=== PATIENT | female | born 1985 | race Caucasian/White ===

== ENCOUNTER 2016-08-15 19:26 | Outpatient (CLI) | payer OTHER ==
[~2016-08-15] VITALS: Ht 160 cm; Wt 100.4 kg
[~2016-08-15 19:26] MED LIST: PREN1TAB49
[2016-08-15 19:31] VITALS: Ht 160 cm; Wt 100.4 kg
[2016-08-15 19:44] VITALS: BP 126/69; PULSE 94; RESP 18
[2016-08-15 20:32] LABS: ADD UMIC NO; URINE BILIRUBIN (Dip) NEGATIVE (NEGATIVE); URINE BLOOD (Dip) NEGATIVE (NEGATIVE); URINE COLOR LT. YELLOW (YELLOW); URINE GLUCOSE (Dip) NEGATIVE (NEGATIVE); URINE KETONES (Dip) NEGATIVE (NEGATIVE); URINE LEUKOCYTE ESTERASE (Dip) NEGATIVE (NEGATIVE); URINE NITRITE (Dip) NEGATIVE (NEGATIVE); URINE TOTAL PROTEIN (Dip) NEGATIVE (NEGATIVE); URINE UROBILINOGEN (Dip) 0.2 E.U./dL (0.1-1.0)
[2016-08-15 20:43] LABS: BASOPHILS % 0.1 % (0.0-2.0); EOSINOPHILS # 0.1 10^3/ul (0.0-0.5); EOSINOPHILS % 0.8 % (0.0-7.0); HEMATOCRIT 37.4 % (37.0-47.0); HEMOGLOBIN 12.4 g/dl (12.0-16.0); LYMPHOCYTES # 2.1 10^3/ul (0.8-2.9); LYMPHOCYTES % 26.2 % (15.0-51.0); MEAN CORPUSCULAR HEMOGLOBIN 28.8 pg (29.0-33.0); MEAN CORPUSCULAR HGB CONC 33.2 g/dl (32.0-37.0); MEAN CORPUSCULAR VOLUME 86.7 fl (82.0-101.0); MEAN PLATELET VOLUME 8.4 fl (7.4-10.4); MONOCYTE # 0.8 10^3/ul (0.3-0.9); MONOCYTES % 10.2 % (0.0-11.0); NEUTROPHIL # 5.1 10^3/ul (1.6-7.5); NEUTROPHILS % 62.7 % (39.0-77.0); PLATELET COUNT 233 10^3/UL (140-440); RED BLOOD COUNT 4.31 10^6/ul (4.20-5.40); RED CELL DISTRIBUTION WIDTH 15.3 % (11.5-14.5); UNCORRECTED WBC 8.2 10^3/ul (4.8-10.8); WHITE BLOOD COUNT 8.2 10^3/ul (4.8-10.8)
--- NOTE | 2016-08-15 20:45 | RADRPT ---
PROCEDURE: Ultrasound CLINICAL INDICATION: Contractions. TECHNIQUE: Ultrasound examination of for evaluation of biophysical profile. COMPARISON: None. FINDINGS: breathing appropriate for a score of 2; movement is appropriate for score of 2; to ne is appropriate for score of 2; and amniotic fluid is appropriate for score of 2. Biophysical pro file of 03/01. MUMTAZ is 8.9 cm. Placenta is anterior grade II. Cardiac motion is detected at a rate of 161 beats per minute. Jesu epperson today's detail examination of previous cardiac rate was 159 beats per minute. Please see companio n report. There is cephalic presentation. IMPRESSION: Biophysical profile of 03/01. Physician Libertad Date Time Electronically viewed and signed by Physician Libertad on 08/15/2016 20:45 RS/
[2016-08-15 20:46] LABS: CONDITION 1; LH ANALYZER COMMENTS 1
--- NOTE | 2016-08-15 20:48 | RADRPT ---
PROCEDURE: US OB. CLINICAL INDICATION: labor. Contractions. TECHNIQUE: Multiple sonographic images of the pelvis were obtained. The images were reviewed on a PACS workstation. COMPARISON: No prior studies are available for comparison. FINDINGS: There is a single viable intrauterine gestation. Cardiac activity is present with 159 beats per min krystin. On today's evaluation of biophysical profile heart rate was 161 beats per minute. There is a cephalic presentation. Measurements were made in order to determine age. The results are as follows: BPD =9.29 cm HC =32.87 cm AC =37.94 cm FL =7.46 cm. Estimated gestational age of approximately 38 weeks and 6 days.. The estimated date of delivery is 08/23/2016. The EFW = 3973 g . The heart, intracranial contents, spine, stomach, kidneys, bladder and cord insertion are visualized and without abnormality. The placenta is anterior, grade II.. There is no evidence for an abruption or placenta previa. There is a normal amount of amniotic fluid with an MUMTAZ = 8.9 cm.. There are no adnexal masses.. IMPRESSION: Single viable intrauterine gestation of approximately 38 weeks and 6 days.. The estimated date of d elivery is 08/23/2016. Physician Libertad Date Time Electronically viewed and signed by Physician Libertad on 08/15/2016 20:48 RS/
--- NOTE | 2016-08-15 21:55 | QN ---
Documentation Comment Laborist Dr Jessica's pt 30 y.o. A2 Ect2 with an IUP at 37 weeks c/o "her bag of water broke". No VB. Occasional UC's. +FM. PMHx: none. PSHx: ectopic x 2. POBHx: x 3, last one in 2013, weighed 8# 15 oz. NKDA. BP 126/69. T= 98.1 NST: baseline 140-150 bpm with accels to 180 bpm. No decels. UC's q 30 minutes. CX: long/0.5 cm/ -3 station. MUMTAZ 8.9. VTX. EFW 3973 grams. ROM-PLUS negative. No pooling noted. U/A and CBC are both wnl. A; IUP at 37 weeks. Membranes unruptured. False labor. P: D/C home. To follow up with Dr Jessica in 2 days. Labor precautions reviewed. MICHELL DELATORRE MD Aug 15, 2016 21:55
--- NOTE | 2016-08-15 22:27 | TRIAGE ---
OB Triage Datetime Report Generated by CPN: 08/15/2016 22:27 Datetime: 08/15/2016 22:19 Time Provider Notified: 08/15/2016 20:02 Datetime: 08/15/2016 21:30 Stage of : OB Triage Labor Evaluation Frequency: X4 Monitor Mode: External Duration (sec)2399: 60-140 Quality: Mild Pattern: Normal: <= 5 Contractions in 10 Minutes Resting Tone [place]: Relaxed Heart Rate FHR Baseline Rate: 140 Monitor Mode: External US FHR Baseline Changes: No Baseline Change Variability: Marked >25 bpm Accelerations: 15X15 Decelerations: None Category: Category I Datetime: 08/15/2016 20:10 Stage of : OB Triage Labor Evaluation Frequency: X1 Monitor Mode: External Duration (sec)2399: 90 Quality: Mild Pattern: Normal: <= 5 Contractions in 10 Minutes Resting Tone [place]: Relaxed Heart Rate FHR Baseline Rate: 140 Monitor Mode: External US FHR Baseline Changes: No Baseline Change Variability: Moderate 6-25 bpm Accelerations: 15X15 Decelerations: None Category: Category I Datetime: 08/15/2016 19:56 Temperature Route: Oral Datetime: 08/15/2016 19:51 Vaginal Exam Dilatation (cms): 0.5 Station: -3 Exam By: kraig Vaginal Bleeding: None Cervix, Consistency: Moderate Cervix, Position: Posterior Datetime: 08/15/2016 19:49 Pool: Negative Nitrazine: Negative Datetime: 08/15/2016 19:40 Assessment Type: Triage Maternal Assessment Level of Consciousness: Fully Conscious DTR's/Clonus: DTRs 2+; No Clonus Headache: Denies Blurred Vision: No Respiratory Effort: Unlabored; Regular Rhythm; Equal Expansion Breath Sounds, Left: Clear and Equal Breath Sounds, Right: Clear and Equal Nausea/Vomiting: Denies RUQ Epigastric Pain: Denies Lower Extremities Edema: None Upper Extremities Edema: None Facial Edema: None Fall Risk Assessment History of Falling: (0) No Secondary Diagnosis: (0) No Ambulatory Aid: (0) Bedrest/Nurse Assist IV Therapy: (0) No Gait: (0) Normal/Bedrest/Immobile Mental Status: (0) Oriented to Own Ability Fall Score: 0 Fall Risk Score Definition: No Risk: No action required Datetime: 08/15/2016 19:39 Time of Arrival: 08/15/2016 19:22 EGA: 37.0 Arrived By: Ambulatory Arrived From: Home Chief Complaint: WATER BROKE AT 1830 Movement: Present Contractions: Denies/Absent Rupture of Membranes: Ruptured Vaginal Bleeding: None Patient Complaints: None Additional Patient Complaints: EFM, ASSESSMENT, CALL MD FOR ORDERS Time Provider Notified: 08/15/2016 20:02 Provider Notified: KATIESHAD Datetime: 07/22/2016 13:51 Fall Score: 0 Fall Risk Score Definition: No Risk: No action required Datetime: 07/22/2016 13:47 Fall Score: 0 Fall Risk Score Definition: No Risk: No action required Datetime: 07/22/2016 13:45 EGA: 33.4 Datetime: 07/10/2016 16:32 EGA: 31.6 Datetime: 07/10/2016 16:31 Fall Score: 0 Fall Risk Score Definition: No Risk: No action required Datetime: 06/22/2016 20:02 EGA: 29.2 Datetime: 06/22/2016 20:01 Fall Score: 0 Fall Risk Score Definition: No Risk: No action required Datetime: 05/17/2016 12:57 EGA: 24.1 Fall Score: 0 Fall Risk Score Definition: No Risk: No action required
== END 2016-08-15 21:55 | disposition home or self-care (01) ==
LOC: OBT 19:26 → L-D 19:26 → OBT 21:55
PROVIDERS: ATTEND Obstetrics & Gynecology
DX: O60.03 Preterm labor without delivery, third trimester (principal); Z3A.37 37 weeks gestation of pregnancy
CPT/HCPCS: 76815; 76818; 81003; 84112; 85025; Z7500; G0463

== ENCOUNTER 2016-08-21 14:50 | Inpatient (IN) | payer OTHER ==
[~2016-08-21] VITALS: Ht 160 cm; Wt 100.0 kg
[2016-08-21 15:17] VITALS: Ht 160 cm; Wt 100.0 kg
[2016-08-21 15:18] VITALS: BP 131/74; PULSE 99; RESP 20
--- NOTE | 2016-08-21 16:42 | RADRPT ---
PROCEDURE: OB ultrasound for biophysical profile with MUMTAZ. CLINICAL INDICATION: Variable decelerations. TECHNIQUE: Multiple sonographic images of the gravid uterus were obtained. The images were review ed on a PACS workstation. COMPARISON: Exam dated 08/15/2016. FINDINGS: breathing movement = 2/2 tone = 2/2 motion = 2/2 MUMTAZ = 2/2 There is a single viable intrauterine gestation with cardiac and a heart rate of 158 bpm. Ther e is a cephalic presentation and an anterior, grade II placenta. There is no evidence of abruption or placenta previa. MUMTAZ = 5.63 cm IMPRESSION: 1. Single viable intrauterine gestation. 2. Biophysical profile = 8/8. 3. MUMTAZ = 5.63 cm, consistent with borderline oligohydramnios. RPTAT: AA .Keshawn Ramon MD, MD Date Time Electronically viewed and signed by .Keshawn Ramon MD, MD on 08/21/2016 16:42 .P/
--- NOTE | 2016-08-21 16:44 | RADRPT ---
PROCEDURE: US OB. CLINICAL INDICATION: Variable decelerations. TECHNIQUE: Multiple sonographic images of the pelvis were obtained. Transabdominal imaging only w as performed. The images were reviewed on a PACS workstation. COMPARISON: Exam dated 08/15/2016. FINDINGS: There is a single viable intrauterine gestation. Cardiac activity is present with a heart rate of 1 54 bpm. There is a cephalic presentation. Measurements were made in order to determine age. The results are as follows: BPD = 9.58 cm HC = 34.52 cm AC = 35.93 cm FL = 7.65 cm Estimated gestational age of approximately 39 weeks 4 days. The estimated date of delivery is 08/24/2016. The EFW = 3836 g, at the greater than 97 percentile. The placenta is anterior, grade II. There is no evidence for an abruption or placenta previa. There is an MUMTAZ = 5.49 cm. IMPRESSION: 1. Single viable intrauterine gestation of approximately 39 weeks 4 days. 2. The estimated date of delivery is 08/24/2016. 3. MUMTAZ of 5.49, consistent with borderline oligohydramnios. RPTAT: AA .Keshawn Ramon MD, Date Time Electronically viewed and signed by .Keshawn Ramon MD, MD on 08/21/2016 16:44 .P/
--- NOTE | 2016-08-21 16:57 | HP ---
Date/Time of Note Date/Time of Note DATE: 08/21/16 TIME: 16:53 OB - History Hx of Present Chief Complaint: contractions and leakage of fluid Last Menstrual Period: November 30, 2015 Estimated Due Date: Sep 05, 2016 : 8 Para: 3 Spontaneous : 3 Therapeutic : 1 Care: Good Care Obstetrical Complications: None Medical Complications: None Past Family/Social History * Past Medical, Surgical, Family and Obstetric Histories reviewed from chart. OB Admission Exam Vital Signs Vital Signs Vital Signs Date Time Temp Pulse Resp B/P Pulse Ox O2 Delivery O2 Flow Rate FiO2 08/21/16 15:18 98.4 99 20 131/74 Room Air Physical Exam HEENT: WNL Heart: Rhythm Normal Lungs: Clear Abdomen: WNL Extremities: Normal Cervical Dilatation: 2cm Effacement: 50% Membranes: Ruptured Amniotic Fluid: Clear Heart Rate: 140's Accelerations: Accelerations Present Varibility: Moderate OB Assessment/Plan Reason for admission: rupture of membranes Plan: Other Induction Method: per Pitocin Protocol Other plan: Augmentation of labor. ANDRÉS LUDWIG MD Aug 21, 2016 16:57
[2016-08-21] MEDS ORDERED: CARBOPROST 250 MCG INJ IM PRN (17:00)
[2016-08-21] MEDS ORDERED: LIDOCAINE 1% (MPF) 30 ML INJ INJ PRN (17:00)
[2016-08-21] MEDS ORDERED: MISOPROSTOL 200 MCG TAB PR PRN (17:00)
[2016-08-21] MEDS ORDERED: METHYLERGONOVINE 0.2 MG INJ IM PRN (17:00)
[2016-08-21] MEDS ORDERED: OXYTOCIN 30 UNITS/LR 500 ML IV PRN (17:00)
[2016-08-21] MEDS ORDERED: AMPICILLIN 2 GM/NS (PMX) 100 ML IV ONE (17:00)
[2016-08-21] MEDS ORDERED: IBUPROFEN 600 MG TAB PO PRN (17:00)
[2016-08-21] MEDS ORDERED: BUTORPHANOL 2 MG INJ IV PRN (17:00)
[2016-08-21] MEDS ORDERED: OXYTOCIN 30 UNITS/LR 500 ML IV SCH ×3 (17:00)
--- NOTE | 2016-08-21 17:05 | TRIAGE ---
OB Triage Datetime Report Generated by CPN: 08/21/2016 17:04 Datetime: 08/21/2016 16:02 Maternal Assessment Level of Consciousness: Fully Conscious DTR's/Clonus: DTRs 2+ Headache: Denies Blurred Vision: No Nausea/Vomiting: Denies RUQ Epigastric Pain: Denies Facial Edema: 2+ Labor Evaluation Frequency: 3-7 Monitor Mode: External Duration (sec)2399: 60 Quality: Moderate Pattern: Normal: <= 5 Contractions in 10 Minutes Resting Tone [place]: Relaxed Pain Assessment Pain Scale: 5 Pain Presence: Intermittent Pain Type: Contraction Pain Location: Abdomen Pain Goal: 5 Membrane Status: Intact Datetime: 08/21/2016 16:00 Heart Rate FHR Baseline Rate: 145 Monitor Mode: External US FHR Baseline Changes: No Baseline Change Variability: Moderate 6-25 bpm Accelerations: 15X15 Decelerations: Variable Category: Category I Datetime: 08/21/2016 15:12 Time of Arrival: 08/21/2016 15:00 EGA: 37.6 Arrived By: Ambulatory Arrived From: Home Chief Complaint: UCS SINCE 1300 Movement: Present Contractions: Regular Time Contractions Began: 08/21/2016 13:00 Contractions: Q 6 AT HOME Rupture of Membranes: Denies Vaginal Bleeding: None Vaginal Discharge: Denies Recent Sexual Intercouse: Denies Abdominal Trauma: Not Applicable Time Provider Notified: 08/21/2016 14:05 Provider Notified: DR LUDWIG Initial Plan: EFM,CALL DR DELSHAD Datetime: 08/21/2016 15:10 Maternal Assessment Level of Consciousness: Fully Conscious Maternal Assessment Level of Consciousness: Fully Conscious DTR's/Clonus: DTRs 2+ DTR's/Clonus: DTRs 2+; No Clonus Headache: Denies Headache: Denies Blurred Vision: No Blurred Vision: No Respiratory Effort: Unlabored; Regular Rhythm; Equal Expansion Breath Sounds, Left: Clear and Equal Breath Sounds, Right: Clear and Equal Nausea/Vomiting: Denies Nausea/Vomiting: Denies RUQ Epigastric Pain: Denies RUQ Epigastric Pain: Denies Facial Edema: None Facial Edema: None Temperature Route: Axillary Fall Risk Assessment History of Falling: (0) No Secondary Diagnosis: (0) No Ambulatory Aid: (0) Bedrest/Nurse Assist IV Therapy: (0) No Gait: (0) Normal/Bedrest/Immobile Mental Status: (0) Oriented to Own Ability Fall Score: 0 Fall Risk Score Definition: No Risk: No action required Labor Evaluation Frequency: NONE AT THIS TIME Pattern: Normal: <= 5 Contractions in 10 Minutes Heart Rate FHR Baseline Rate: 145 Monitor Mode: External US FHR Baseline Changes: No Baseline Change Variability: Moderate 6-25 bpm Decelerations: None Category: Category I Pain Assessment Pain Scale: 5 Pain Presence: Intermittent Pain Type: Contraction Pain Location: Abdomen Pain Goal: 5 Vaginal Exam Dilatation (cms): 2.0 Effacement (%): 50 Station: -2 Membrane Status: Intact Vaginal Bleeding: None Cervix, Consistency: Moderate Cervix, Position: Posterior Presentation 'A': Cephalic Datetime: 08/15/2016 22:19 Time of Arrival: 08/21/2016 14:50 EGA: 37.6 Movement: Present Datetime: 08/15/2016 19:40 Fall Score: 0 Fall Risk Score Definition: No Risk: No action required Datetime: 08/15/2016 19:39 EGA: 37.0 Datetime: 07/22/2016 13:51 Fall Score: 0 Fall Risk Score Definition: No Risk: No action required Datetime: 07/22/2016 13:47 Fall Score: 0 Fall Risk Score Definition: No Risk: No action required Datetime: 07/22/2016 13:45 EGA: 33.4 Datetime: 07/10/2016 16:32 EGA: 31.6 Datetime: 07/10/2016 16:31 Fall Score: 0 Fall Risk Score Definition: No Risk: No action required Datetime: 06/22/2016 20:02 EGA: 29.2 Datetime: 06/22/2016 20:01 Fall Score: 0 Fall Risk Score Definition: No Risk: No action required Datetime: 05/17/2016 12:57 EGA: 24.1 Fall Score: 0 Fall Risk Score Definition: No Risk: No action required
[2016-08-21] MEDS ORDERED: LACTATED RINGER'S 1,000 ML IV PRN (17:30)
[2016-08-21] MEDS: LACTATED RINGER'S 1,000 ML IV SCH (18:05)
[2016-08-21 18:30] LABS: BASOPHILS % 0.3 % (0.0-2.0); EOSINOPHILS % 0.5 % (0.0-7.0); HEMATOCRIT 37.6 % (37.0-47.0); HEMOGLOBIN 13.1 g/dl (12.0-16.0); LYMPHOCYTES # 2.3 10^3/ul (0.8-2.9); MEAN CORPUSCULAR HEMOGLOBIN 29.7 pg (29.0-33.0); MEAN CORPUSCULAR HGB CONC 34.9 g/dl (32.0-37.0); MEAN CORPUSCULAR VOLUME 85.1 fl (82.0-101.0); MEAN PLATELET VOLUME 8.7 fl (7.4-10.4); MONOCYTE # 0.7 10^3/ul (0.3-0.9); MONOCYTES % 7.1 % (0.0-11.0); NEUTROPHIL # 6.9 10^3/ul (1.6-7.5); NEUTROPHILS % 69.1 % (39.0-77.0); PLATELET COUNT 222 10^3/UL (140-440); RED BLOOD COUNT 4.41 10^6/ul (4.20-5.40); RED CELL DISTRIBUTION WIDTH 15.4 % (11.5-14.5)
[2016-08-21 18:34] LABS: CONDITION 1; LH ANALYZER COMMENTS 1
[2016-08-21 18:40] LABS: INR 0.93; PROTIME 12.5 Sec (12.2-14.2)
[2016-08-21] MEDS ORDERED: FENTAnyl 2MCG/ML-ROPIV 0.2% 100 ML ONE (21:26)
[2016-08-21] MEDS ORDERED: FENTAnyl 2MCG/ML-ROPIV 0.2% 100 ML BAG EPI SCH (22:00)
[2016-08-21] MEDS ORDERED: morphine 2 MG INJ IV PRN ×2 (22:00)
[2016-08-21] MEDS ORDERED: ONDANSETRON 4 MG INJ IV PRN (22:00)
[2016-08-21] MEDS ORDERED: KETOROLAC 30 MG INJ IV PRN (22:00)
[2016-08-21] MEDS ORDERED: NALOXONE (0.4 MG/ML) INJ IV PRN (22:00)
[2016-08-21] MEDS ORDERED: DIPHENHYDRAMINE 50 MG INJ IV PRN (22:00)
[2016-08-21] MEDS: AMPICILLIN 1 GM/NS (PMX) 50 ML IV SCH (23:18)
[2016-08-22] MEDS: AMPICILLIN 1 GM/NS (PMX) 50 ML IV SCH ×2 (07:38→11:03)
[2016-08-22] MEDS: LACTATED RINGER'S 1,000 ML IV SCH ×2 (08:50→11:15)
--- NOTE | 2016-08-22 12:58 | LDN ---
Date/Time of Note Date/Time of Note DATE: 08/22/16 TIME: 12:55 Delivery Summary over intact perineum Placenta Delivered: Spontaneously Meconium: none Perineum intact?: Yes Anesthesia type: Epidural Estimated blood loss: 200 Sponge & Needle done & correct: Yes All needle counts correct: Yes Any foreign bodies felt in the: No Problems: Delivery Information Sex Infant Sex: female Apgars 1 Minute: 9 5 Minute: 9 Suctioning Nose & mouth suctioned at sara: Yes Delee suction performed: No Umbilical Cord Umbilical cord with: 3 Vessels Cord presentations: no nuchal cord Cord Blood was obtained: Yes Mother & Baby Disposition Disposition Mom & Baby to Maternity; Good: Yes ANDRÉS LUDWIG MD Aug 22, 2016 12:58
--- NOTE | 2016-08-22 14:22 | DELSUM ---
Delivery Summary A-C Datetime Report Generated by CPN: 08/22/2016 14:22 DELIVERY PERSONNEL Tape Librarian: [place], May MATERNAL INFORMATION Delivery Anesthesia: Epidural Medications in Delivery: LR WITH PITOCIN 30 UNITS Estimated Blood Loss (ml): 200 Placenta Cultured: No Maternal Complications: None LABOR SUMMARY EDC: 09/05/2016 00:00 No. Babies in Womb: 1 Attempted: No Labor Anesthesia: Epidural LABOR INFORMATION Reason for Induction: Not Applicable Onset of Labor: 08/21/2016 13:00 Complete Dilatation: 08/22/2016 12:27 Oxytocin: Augmentation Group B Beta Strep: Done, Result Unknown Group B Beta Strep: Negative Antibiotics # of Doses: 5 Antibiotics Time of Last Dose: 1100 Steroids Given: None Reason Steroids Not Administered: Not Applicable MEMBRANES Membranes Rupture Method: Artificial Rupture of Membranes: 08/22/2016 06:20 Length of Rupture (hr): 6.27 Amniotic Fluid Color: Bloody Amniotic Fluid Amount: Moderate Amniotic Fluid Odor: None STAGES OF LABOR Stage 1 hr: 23 Stage 1 min: 27 Stage 2 hr: 0 Stage 2 min: 9 Stage 3 hr: 0 Stage 3 min: 4 Total Time in Labor hr: 23 Total Time in Labor min: 40 VAGINAL DELIVERY Episiotomy: None Laceration Extension: First Degree Laceration Type: Perineal Laceration Repair: Yes Initial Vag Sponge Count: 20 Final Vag Sponge Count: 20 Initial Vag Sharps Count: 1 Final Vag Sharps Count: 2 Sponge Count Correct: Yes Sharps Count Correct: Yes BABY A INFORMATION Infant Delivery Date/Time: 08/22/2016 12:36 Method of Delivery: Born in Route : No : N/A Forceps: N/A Vacuum Extraction: N/A Shoulder Dystocia : No SHOULDER DYSTOCIA BABY A Delivery Date/Time: 08/22/2016 12:36 PRESENTATION/POSITION BABY A Presentation: Cephalic Presentation: Cephalic Presentation: Cephalic Presentation: Cephalic Cephalic Presentation: Vertex Vertex Position: Right Occipital Anterior Breech Presentation: N/A PLACENTA INFORMATION BABY A Placenta Delivery Time : 08/22/2016 12:40 Placenta Method of Delivery: Spontaneous Placenta Status: Delivered SCORES BABY A Heart Rate 1 min: >100 bpm Resp Effort 1 min: Good Cry Reflex Irritability 1 min: Cough/Sneeze/Pulls Away Muscle Tone 1 min: Active Motion Color 1 min: Body [place], Extremit Blue Resuscitation Effort 1 min: Tactile Stimulation SCORE 1 MIN: 9 Heart Rate 5 min: >100 bpm Resp Effort 5 min: Good Cry Reflex Irritability 5 min: Cough/Sneeze/Pulls Away Muscle Tone 5 min: Active Motion Color 5 min: Body [place], Extremit Blue Resuscitation Effort 5 min: Tactile Stimulation SCORE 5 MIN: 9 INFANT INFORMATION BABY A Gestational Age at Delivery: 38.0 Gestational Status: Early Term- 37- 38.6 Weeks Outcome : Liveborn Infant Condition : Stable Sex: Female IDENTIFICATION/MEDS BABY A ID Band Number: [id number] ID Band Location: Right Leg; Left Arm Sensor Applied: Yes Sensor Number: [id number] Sensor Location : Cord Clamp Vitamin K Given : Not Given Erythromycin Given: Deferred by Parents WEIGHT/LENGTH BABY A Infant Birthweight (gm): 3855 Weight (lb): 8 Infant Weight (oz): 8 Length (in): 20.00 Infant Length (cm): 50.80 CORD INFORMATION BABY A No. Cord Vessels: 3 Nuchal Cord : N/A Cord Blood Taken: Yes Banking/Donate Info: NO Infant Suction: Mouth; Nose ASSESSMENT BABY A Infant Complications: Decreased Variability Physical Findings at Delivery: Caput Succedaneum Respirations: Appears Normal Space Operations Officer/ALS Called : No Infant Care By: INNA Transferred To: Remains with Mother
[2016-08-22 14:30] VITALS: BP 120/56; PULSE 80; RESP 19
[2016-08-22] MEDS ORDERED: ACETAMINOPHEN 325 MG TAB PO PRN (15:00)
[2016-08-22] MEDS ORDERED: METHYLERGONOVINE 0.2 MG INJ IM PRN (15:00)
[2016-08-22] MEDS ORDERED: DIBUCAINE 1% 30 GM OINT PR PRN (15:00)
[2016-08-22] MEDS ORDERED: OXYTOCIN 30 UNITS/LR 500 ML IV PRN (15:00)
[2016-08-22] MEDS ORDERED: ACETAMINOPHEN/CODEINE #3 TAB PO PRN (15:00)
[2016-08-22] MEDS ORDERED: MISOPROSTOL 200 MCG TAB PR PRN (15:00)
[2016-08-22] MEDS ORDERED: CARBOPROST 250 MCG INJ IM PRN (15:00)
[2016-08-22 16:30] VITALS: BP 114/51; PULSE 96; RESP 16
[2016-08-22] MEDS: WITCH HAZEL/GLYCERIN PAD PR PRN (17:31)
[2016-08-22] MEDS: BENZOCAINE 20% 56 ML SPRAY TOP PRN (17:32)
[2016-08-22] MEDS: LACTATED RINGER'S 1,000 ML IV* SCH ×2 (17:32→22:59)
[2016-08-22] MEDS: IBUPROFEN 600 MG TAB PO SCH ×2 (18:00→23:30)
[2016-08-22 19:20] VITALS: BP 94/67; PULSE 111; RESP 18
[2016-08-22] MEDS: SENNA/DOCUSATE NA (8.6MG/50MG) TAB PO SCH (21:23)
[2016-08-23 04:00] VITALS: BP 99/57; PULSE 87; RESP 18
[2016-08-23] MEDS: IBUPROFEN 600 MG TAB PO SCH ×4 (05:31→23:52)
[2016-08-23] MEDS: LACTATED RINGER'S 1,000 ML IV* SCH (06:59)
[2016-08-23 07:52] LABS: BASOPHILS % 0.3 % (0.0-2.0); EOSINOPHILS # 0.1 10^3/ul (0.0-0.5); EOSINOPHILS % 0.9 % (0.0-7.0); HEMATOCRIT 34.2 % (37.0-47.0); HEMOGLOBIN 11.9 g/dl (12.0-16.0); LYMPHOCYTES # 2.1 10^3/ul (0.8-2.9); LYMPHOCYTES % 22.1 % (15.0-51.0); MEAN CORPUSCULAR HEMOGLOBIN 29.7 pg (29.0-33.0); MEAN CORPUSCULAR HGB CONC 34.7 g/dl (32.0-37.0); MEAN CORPUSCULAR VOLUME 85.5 fl (82.0-101.0); MEAN PLATELET VOLUME 8.9 fl (7.4-10.4); MONOCYTES % 10.5 % (0.0-11.0); NEUTROPHIL # 6.3 10^3/ul (1.6-7.5); NEUTROPHILS % 66.2 % (39.0-77.0); PLATELET COUNT 185 10^3/UL (140-440); RED CELL DISTRIBUTION WIDTH 15.2 % (11.5-14.5); UNCORRECTED WBC 9.5 10^3/ul (4.8-10.8); WHITE BLOOD COUNT 9.5 10^3/ul (4.8-10.8)
[2016-08-23 08:00] VITALS: BP 104/52; PULSE 79; RESP 16
[2016-08-23 08:01] LABS: CONDITION 1; LH ANALYZER COMMENTS 1
[2016-08-23] MEDS: SENNA/DOCUSATE NA (8.6MG/50MG) TAB PO SCH ×2 (08:43→21:29)
[2016-08-23] MEDS ORDERED: INFLUENZA VIRUS VACCINE 0.5 ML SYG IM* ONE (09:00)
[2016-08-23 16:07] VITALS: BP 113/66; PULSE 86; RESP 16
[2016-08-23 19:47] VITALS: BP 100/50; PULSE 84; RESP 18
--- NOTE | 2016-08-23 20:45 | DS ---
Date/Time of Note Date/Time of Note DATE: 08/23/16 TIME: 20:44 Obstetrical Discharge Record Final Diagnosis Final Diagnosis: Term delivered Vaginal Delivery Obstetrical Delivery: Spontaneous Complications Augmentation: Yes Condition on Discharge Physical Assessment Voiding: Yes Bowel Movement: Yes Breast: Soft, non-tender Fundus: Firm Calf Tenderness: No Patient Condition: Stable ANDRÉS LUDWIG MD Aug 23, 2016 20:45
[2016-08-24 03:45] VITALS: BP 106/55; PULSE 78; RESP 18
[2016-08-24] MEDS: IBUPROFEN 600 MG TAB PO SCH ×3 (05:28→17:20)
[2016-08-24 07:40] VITALS: BP 108/63; PULSE 75; RESP 18
[2016-08-24] MEDS ORDERED: DIPHTH/TET/ACEL PERTUSS (ADULT) 0.5 ML VIAL IM* ONE (09:00)
[2016-08-24] MEDS: SENNA/DOCUSATE NA (8.6MG/50MG) TAB PO SCH (09:15)
[2016-08-24] MEDS: WITCH HAZEL/GLYCERIN PAD PR PRN (15:37)
[2016-08-24] MEDS: BENZOCAINE 20% 56 ML SPRAY TOP PRN (15:37)
[2016-08-24 16:05] VITALS: BP 87/44; PULSE 87; RESP 18
== END 2016-08-24 18:00 | disposition home or self-care (01) | DRG 775 ==
LOC: OBT 14:50 → L-D 14:51 → OBT 16:45 → L-D 16:45 → PP1 08-22 14:34
PROVIDERS: ADMIT Obstetrics & Gynecology; ATTEND Obstetrics & Gynecology
PROC: 10E0XZZ Delivery of Products of Conception, External Approach (ICD-10-PCS; principal; 2016-08-22)
PROC: 3E00X4Z Introduction of Serum, Toxoid and Vaccine into Skin and Mucous Membranes, External Approach (ICD-10-PCS; 2016-08-23)
DX: O80 Encounter for full-term uncomplicated delivery (principal); Z23 Encounter for immunization; Z3A.39 39 weeks gestation of pregnancy; Z37.0 Single live birth
CPT/HCPCS: 62319; 76815; 76818; 85025; 85610; 85730; 86592; 86900; 86901; 87340; 90686; 90715; G0463; J0290; J2590; J3010; J7120

== ENCOUNTER 2017-07-31 15:04 | Outpatient (CLI) | END 2017-07-31 18:50 | disposition home or self-care (01) ==

== ENCOUNTER 2017-08-05 09:34 | Outpatient (CLI) | END 2017-08-05 12:45 | disposition home or self-care (01) ==

== ENCOUNTER 2017-08-11 17:35 | Inpatient (IN) | END 2017-08-12 13:50 | disposition home or self-care (01) | DRG 780 ==

== ENCOUNTER 2017-08-24 16:07 | Outpatient (CLI) | END 2017-08-24 21:27 | disposition home or self-care (01) ==

== ENCOUNTER 2017-08-27 19:11 | Inpatient (IN) | END 2017-08-29 14:00 | disposition home or self-care (01) | DRG 775 ==

== ENCOUNTER 2018-06-13 08:33 | Day surgery (SDC) | END 2018-06-13 14:50 | disposition home or self-care (01) ==